=== PATIENT | male | born 1950 | race Two or more races ===

== ENCOUNTER → 2020-05-09 10:23 | Outpatient (BNVA) | payer MEDICARE, MEDICAID, SELFPAY | PROVIDERS: PCP Internal Medicine; Referring Provider Internal Medicine; Visit Provider Internal Medicine | DX: Z13.89 Encounter for screening for other disorder (principal) | CPT/HCPCS: Q3014 ==

== ENCOUNTER 2020-05-15 11:08 | Outpatient (REF) | payer MEDICARE, MEDICAID, SELFPAY ==
[2020-05-15 12:20] LABS: Alanine Aminotransferase 16 U/L (0-40); Albumin Level 4.1 g/dL (3.5-5.0); Alkaline Phosphatase 58 U/L (39-117); Anion Gap 9 (12-20); Aspartate Amino Transferase 16 U/L (5-37); Bilirubin Total 0.7 mg/dL (0.0-1.0); Blood Urea Nitrogen 20 mg/dL (9-16); Calcium 9.8 mg/dL (8.4-10.2); Carbon Dioxide 31 mmol/L (22-29); Chloride 104 mmol/L (96-108); Estimated Glomerular Filt Rate > 60; Glucose Random 87 mg/dL (60-115); Phosphorus 2.9 mg/dL (2.7-4.5); Potassium 4.2 mmol/l (3.3-5.1); Sodium 140 mmol/L (135-145); Total Protein 7.1 g/dL (6.5-8.0)
[2020-05-16 18:33] LABS: Calcium (PTHI) 10.3 mg/dL (8.6-10.3); PTHI 52 pg/mL (14-64)
== END 2020-05-15 11:09 | disposition home or self-care (01) ==
LOC: HO.LAB 11:08
PROVIDERS: PCP Internal Medicine; Visit Provider Internal Medicine
DX: E83.52 Hypercalcemia (principal); E55.9 Vitamin D deficiency, unspecified
CPT/HCPCS: 80053; 82306; 83970; 84100

== ENCOUNTER → 2020-06-28 08:43 | Outpatient (BNVA) | payer MEDICARE, MEDICAID, SELFPAY | PROVIDERS: PCP Internal Medicine; Visit Provider Internal Medicine | DX: Z76.89 Persons encountering health services in other specified circumstances (principal) | CPT/HCPCS: Q3014 ==

== ENCOUNTER → 2020-08-29 09:08 | Outpatient (BNVA) | payer MEDICARE, MEDICAID, SELFPAY | PROVIDERS: PCP Internal Medicine; Visit Provider Internal Medicine | CPT/HCPCS: Q3014 ==

== ENCOUNTER 2020-10-25 09:23 | Outpatient (REF) | payer MEDICARE, MEDICAID, SELFPAY ==
[2020-10-25 10:35] LABS: Albumin Level 4.3 g/dL (3.5-5.0); Estimated Glomerular Filt Rate > 60
[2020-10-25 10:50] LABS: Calcium 10.8 mg/dL (8.4-10.2); Phosphorus 2.4 mg/dL (2.7-4.5)
[2020-10-25 11:00] LABS: Vitamin D 25-OH Total 23.1 ng/mL (>30)
[2020-10-26 09:52] LABS: Calcium, Ionized 5.6 mg/dL (4.8-5.6)
[2020-10-26 15:57] LABS: Calcium (PTHI) 10.9 mg/dL (8.6-10.3); PTHI 50 pg/mL (14-64)
== END 2020-10-25 09:24 | disposition home or self-care (01) ==
LOC: HO.LAB 09:23
PROVIDERS: PCP Internal Medicine; Visit Provider Internal Medicine
DX: E21.3 Hyperparathyroidism, unspecified (principal); E55.9 Vitamin D deficiency, unspecified
CPT/HCPCS: 36415; 82040; 82306; 82310; 82330; 82565; 83970; 84100

== ENCOUNTER 2020-10-30 11:35 | Outpatient (REF) | payer MEDICARE, MEDICAID, SELFPAY ==
[2020-10-30 12:26] LABS: Total Volume 24 Hour Urine 1100 mL
[2020-10-30 12:43] LABS: Creatinine, 24Hr Urine 1.8 G/Day (1.0-2.0); Creatinine, mg/dL 163.53
[2020-10-31 18:22] LABS: Calcium, 24 Hr Urine 188 mg/24 h; Calcium/Creatinine Ratio 105 mg/g creat (30-210); Creatinine 24Hr Urine 1.79 g/24 h (0.50-2.15)
== END 2020-10-30 11:36 | disposition home or self-care (01) ==
LOC: HO.LNP 11:35
PROVIDERS: Visit Provider Internal Medicine
DX: E83.52 Hypercalcemia (principal)
CPT/HCPCS: 82340; 82570

== ENCOUNTER → 2020-10-31 10:00 | Outpatient (BNVA) | payer MEDICARE, MEDICAID, SELFPAY | PROVIDERS: PCP Internal Medicine; Visit Provider Internal Medicine | CPT/HCPCS: Q3014 ==

== ENCOUNTER 2021-01-22 10:56 | Outpatient (REF) | payer MEDICARE, MEDICAID, SELFPAY ==
[2021-01-22 12:02] LABS: MANUAL DIFF FLAG NO
[2021-01-22 12:10] LABS: Basophils Percent Auto 0.4 % (0-2); Eosinophils Absolute Auto 0.1 X10*3/uL (0.0-0.4); Eosinophils Percent Auto 2.8 % (0-4); Hematocrit 39.8 % (42-52); Hemoglobin 13.3 g/dl (14.0-18.0); Lymphocytes Absolute Auto 2.4 X10*3/uL (1.2-4.9); Lymphocytes Percent Auto 51.2 % (20-40); Mean Corpuscular HGB Conc 33.4 g/dl (31.0-36.0); Mean Corpuscular Hemoglobin 31.1 pg (27.0-33.0); Mean Corpuscular Volume 93.2 fL (80-98); Mean Platelet Volume 13.4 fL (9.4-12.4); Monocytes Absolute Auto 0.4 X10*3/uL (0.1-1.2); Monocytes Percent Auto 8.9 % (2-11); Neutrophils Absolute Auto 1.7 X10*3/uL (2.0-8.3); Neutrophils Percent Auto 36.7 % (45-73); Platelet Count 120 X10*3/uL (160-400); Red Blood Count 4.27 X10*6/uL (4.60-5.80); Red Cell Distribution Width 12.3 % (11.0-16.0); White Blood Count 4.6 X10*3/uL (4.8-10.8)
[2021-01-22 12:47] LABS: T4 Thyroxine 8.5 ug/dL (4.5-12.0); Thyroid Stimulating Hormone 1.86 uIU/mL (0.32-4.0); Vitamin D 25-OH Total 29.6 ng/mL (>30)
[2021-01-22 12:53] LABS: Vitamin B12 367 pg/mL (200-900)
[2021-01-22 13:10] LABS: Alanine Aminotransferase 14 U/L (0-40); Albumin Level 4.1 g/dL (3.5-5.0); Alkaline Phosphatase 72 U/L (39-117); Anion Gap 10 (12-20); Aspartate Amino Transferase 19 U/L (5-37); Bilirubin Total 0.5 mg/dL (0.0-1.0); Blood Urea Nitrogen 13 mg/dL (9-16); Calcium 10.5 mg/dL (8.4-10.2); Carbon Dioxide 29 mmol/L (22-29); Chloride 107 mmol/L (96-108); Estimated Glomerular Filt Rate 59; Glucose Random 93 mg/dL (60-115); Rheumatoid Factor < 15.0 IU/mL (<15.0); Sodium 141 mmol/L (135-145); Total Protein 7.1 g/dL (6.5-8.0)
[2021-01-22 13:14] LABS: Erythrocyte Sedimentation Rate 6 MM/HR (0-15)
[2021-01-23 16:57] LABS: Lyme Abs Screen <0.90 index
[2021-01-23 21:01] LABS: Triiodothyronine T3 Total 123 ng/dL (76-181)
[2021-01-26 11:10] LABS: Testosterone, Total 707 ng/dL (250-1100)
== END 2021-01-22 10:57 | disposition home or self-care (01) ==
LOC: HO.LAB 10:56
PROVIDERS: PCP Internal Medicine; Visit Provider Physical Medicine & Rehabilitation
DX: Z01.84 Encounter for antibody response examination (principal); G89.4 Chronic pain syndrome; Z79.891 Long term (current) use of opiate analgesic
CPT/HCPCS: 36415; 80053; 82306; 82607; 84403; 84436; 84443; 84480; 85025; 85652; 86431; 86617; 86618

== ENCOUNTER → 2021-02-27 10:30 | Outpatient (BNVA) | payer MEDICARE, MEDICAID, SELFPAY | PROVIDERS: PCP Internal Medicine; Visit Provider Internal Medicine | DX: Z13.89 Encounter for screening for other disorder (principal) | CPT/HCPCS: Q3014 ==

== ENCOUNTER 2021-06-18 10:24 | Outpatient (REF) | payer MEDICARE, MEDICAID, SELFPAY ==
[2021-06-18 11:35] LABS: Alanine Aminotransferase 14 U/L (0-40); Albumin Level 4.2 g/dL (3.5-5.0); Alkaline Phosphatase 70 U/L (39-117); Anion Gap 10 (12-20); Aspartate Amino Transferase 19 U/L (5-37); Bilirubin Total 0.6 mg/dL (0.0-1.0); Blood Urea Nitrogen 15 mg/dL (9-16); Calcium 10.7 mg/dL (8.4-10.2); Carbon Dioxide 30 mmol/L (22-29); Chloride 105 mmol/L (96-108); Estimated Glomerular Filt Rate 55; Glucose Random 109 mg/dL (60-115); Phosphorus 2.8 mg/dL (2.7-4.5); Potassium 4.3 mmol/L (3.3-5.1); Sodium 141 mmol/L (135-145); Total Protein 7.6 g/dL (6.5-8.0)
[2021-06-18 11:57] LABS: Free T4 (Free Thyroxine) 0.91 ng/dL (0.71-1.85); Thyroid Stimulating Hormone 1.69 uIU/mL (0.32-4.0); Vitamin D 25-OH Total 25.4 ng/mL (>30)
[2021-06-20 16:31] LABS: Calcium (PTHI) 10.5 mg/dL (8.6-10.3); PTHI 60 pg/mL (14-64)
== END 2021-06-18 10:25 | disposition home or self-care (01) ==
LOC: HO.LAB 10:24
PROVIDERS: PCP Internal Medicine; Visit Provider Internal Medicine
DX: E21.3 Hyperparathyroidism, unspecified (principal); E55.9 Vitamin D deficiency, unspecified
CPT/HCPCS: 36415; 80053; 82306; 83970; 84100; 84439; 84443

== ENCOUNTER 2021-06-20 13:02 | Outpatient (REF) | payer MEDICARE, MEDICAID, SELFPAY ==
--- NOTE | ~2021-06-20 | MM_ITS ---
EXAMINATION: BONE DENSITOMETRY CLINICAL INDICATION: Hyperparathyroidism. COMPARISON: Baseline BD dated 05/05/2019. TECHNIQUE: Using a [employer] DXA System (software version: 13.1) manufactured by [employer], dual-energy x-ray absorptiometry was performed of the lumbar spine, left hip, and left forearm radius 33%. The images are of good technical quality. Summary results are attached. FINDINGS: AP SPINE L1-L3 (excluding L4): The data of L1-L4 has been changed to exclude the L4 vertebral body, because degenerative changes at this level may cause overestimation of lumbar spine density. Current: BMD 1.122 g/cm2, Z-score -0.2, T-score -0.7, normal, 2.9% decrease from baseline (<5% change is not significant). Baseline: BMD 1.156 g/cm2. LEFT FEMUR, NECK: Current: BMD 0.814 g/cm2, Z-score -0.7, T-score -2.0, osteopenia. Baseline: BMD 0.818 g/cm2. LEFT FEMUR, TOTAL: Current: BMD 0.972 g/cm2, Z-score -0.1, T-score -0.9, normal, 3.2% increase from baseline (<5% change is not significant). Baseline: BMD 1.004 g/cm2. LEFT FOREARM RADIUS 33%: BMD 0.956 g/cm2, Z-score 0.5, T-score -0.3, normal, 0.1% decrease from baseline (<5% change is not significant). Baseline: BMD 0.957 g/cm2. IDENTIFIED RISK FACTORS: Height loss, hyperparathyroidism, hypogonadism, rheumatoid arthritis, secondary osteoporosis. HISTORY OF FRACTURE: None listed. MEDICATIONS: Vitamin D. MM/XR DEXA appendicular skeleton IMPRESSION: 1. DIAGNOSIS: Osteopenia based on the lowest T-score value of -2.0 in the femoral neck applying World Health Organization criteria. 2. 10-YEAR FRACTURE RISK PREDICTION, FRAX: Major osteoporotic fracture (clinical spine, forearm, hip or shoulder) 5.9%. Hip fracture 1.8%. 3. Treatment Recommendations: NOF guidelines recommend consideration for treatment in postmenopausal women and men age 50 and older presenting with the following: -A hip or vertebral (clinical or morphometric) fracture. -T-score less than or equal to -2.5 at the femoral neck or spine after appropriate evaluation to exclude secondary causes. -Low bone mass at the hip or spine and a 10-year fracture probability by FRAX of greater than or equal to 3% for hip fracture or greater than or equal to 20% for major osteoporotic fracture based on the [place] adapted WHO algorithm. 4. Other Recommendations: All treatment decisions require clinical judgment and consideration of individual patient factors, including patient preferences, comorbidities, previous drug use, risk factors not captured in the FRAX model (e.g. frailty, falls, vitamin D deficiency, increased bone turnover, interval significant decline in bone density) and possible under or overestimation of fracture risk by FRAX. Additional medical evaluation for secondary cause of low bone mineral density may be appropriate. FUTURE SCAN RECOMMENDATION: People with diagnosed cases of osteoporosis or at high risk for fracture should have regular bone mineral density tests. For patients eligible for Medicare, routine testing is allowed once every 2 years. The testing frequency can be increased to one year for patients who have rapidly progressing disease, those who are receiving or discontinuing medical therapy to restore bone mass, or have additional risk factors.
== END 2021-06-20 13:03 | disposition home or self-care (01) ==
LOC: HO.MAMMO 13:02
PROVIDERS: Visit Provider Internal Medicine
DX: Z13.820 Encounter for screening for osteoporosis (principal); E21.3 Hyperparathyroidism, unspecified; R29.890 Loss of height; M06.9 Rheumatoid arthritis, unspecified; E29.1 Testicular hypofunction
CPT/HCPCS: 77081

== ENCOUNTER → 2021-06-26 10:17 | Outpatient (BNVA) | payer MEDICARE, MEDICAID, SELFPAY | PROVIDERS: PCP Internal Medicine; Visit Provider Internal Medicine | DX: I16.1 Hypertensive emergency (principal) | CPT/HCPCS: 99212 ==

== ENCOUNTER 2022-06-23 09:47 | Outpatient (REF) | payer MEDICARE, MEDICAID, SELFPAY ==
[2022-06-23 10:19] LABS: Baso%MD 0.4 %; Eos%MD 4.3 %; Hematocrit 39.6 % (42.0-52.0); Hemoglobin 12.8 g/dl (14.0-18.0); IG%MD 0.2 %; Lymph%MD 49.4 %; Mean Corpuscular HGB Conc 32.3 g/dl (31.0-36.0); Mean Corpuscular Hemoglobin 30.3 pg (27.0-33.0); Mean Corpuscular Volume 93.8 fL (80.0-98.0); Mean Platelet Volume 12.3 fL (9.4-12.4); Neut%MD 36.7 %; Platelet Count 135 X10*3/uL (160-400); Red Blood Count 4.22 X10*6/uL (4.60-5.80); Red Cell Distribution Width 12.7 % (11.0-16.0); White Blood Count 4.7 X10*3/uL (4.8-10.8)
[2022-06-23 11:11] LABS: Erythrocyte Sedimentation Rate 8 MM/HR (0-15)
[2022-06-23 11:20] LABS: Alanine Aminotransferase 13 U/L (0-40); Alkaline Phosphatase 76 U/L (39-117); Anion Gap 10 (12-20); Anion Gap 9 (12-20); Aspartate Amino Transferase 17 U/L (5-37); Aspartate Amino Transferase 18 U/L (5-37); Bilirubin Total 0.4 mg/dL (0.0-1.0); Blood Urea Nitrogen 15 mg/dL (9-16); Calcium 10.2 mg/dL (8.4-10.2); Carbon Dioxide 30 mmol/L (22-29); Carbon Dioxide 31 mmol/L (22-29); Chloride 107 mmol/L (96-108); Cholesterol 200 mg/dL; Estimated Glomerular Filt Rate 59; Estimated Glomerular Filt Rate > 60; Glucose Fasting 101 mg/dL (60-99); Glucose Random 102 mg/dL (60-115); HDL Cholesterol 64 mg/dL; LDL Cholesterol Calculated 123 mg/dl; Potassium 4.5 mmol/L (3.3-5.1); Potassium 4.6 mmol/L (3.3-5.1); Rheumatoid Factor < 13.0 IU/mL (<15.0); Sodium 142 mmol/L (135-145); Total Protein 7.1 g/dL (6.5-8.0); Triglycerides 65 mg/dL
[2022-06-23 11:25] LABS: Vitamin D 25-OH Total 24.7 ng/mL (>30)
[2022-06-23 11:30] LABS: Thyroid Stimulating Hormone 2.31 uIU/mL (0.32-4.0); Vitamin B12 366 pg/mL (200-900); Vitamin D 25-OH Total 25.3 ng/mL (>30)
[2022-06-23 13:10] LABS: Band Neutrophils Percent 1 % (3-5); Basophils Percent Manual 1 % (0-2); Eosinophils Absolute Manual 0.1 X10*3/uL (0.0-0.4); Eosinophils Percent Manual 2 % (0-4); Lymphocytes Absolute Manual 2.7 X10*3/uL (1.2-4.9); Lymphocytes Percent Manual 57 % (20-40); Monocytes Absolute Manual 0.4 X10*3/uL (0.1-1.2); Monocytes Percent Manual 8 % (2-11); Neutrophils Absolute Manual 1.5 X10*3/uL (2.0-8.3); Neutrophils Percent Manual 31 % (45-73)
[2022-06-23 13:12] LABS: Platelet Estimate SLIGHTLY DECREASED (NORMAL); Platelet Morphology Comment L; RBC Morphology NORMAL
[2022-06-24 07:23] LABS: Triiodothyronine T3 Total 134 ng/dL (76-181)
[2022-06-24 08:19] LABS: Lyme Abs Screen <0.90 index
[2022-06-24 12:39] LABS: Calcium, Ionized 5.5 mg/dL (4.8-5.6)
[2022-06-24 15:08] LABS: Calcium (PTHI) 10.5 mg/dL (8.6-10.3); PTHI 74 pg/mL (16-77)
== END 2022-06-23 09:48 | disposition home or self-care (01) ==
LOC: HO.LAB 09:47
PROVIDERS: Physical Medicine & Rehabilitation; PCP Internal Medicine; Visit Provider Internal Medicine
DX: M47.816 Spondylosis without myelopathy or radiculopathy, lumbar region (principal); E78.5 Hyperlipidemia, unspecified; I10 Essential (primary) hypertension; E21.3 Hyperparathyroidism, unspecified; E55.9 Vitamin D deficiency, unspecified; G89.4 Chronic pain syndrome; R10.10 Upper abdominal pain, unspecified
CPT/HCPCS: 36415; 80053; 80061; 82306; 82330; 82607; 83970; 84436; 84443; 84480; 85007; 85027; 85652; 86431; 86617; 86618

== ENCOUNTER 2022-08-15 11:28 | Outpatient (REF) | payer MEDICARE, MEDICAID, SELFPAY ==
--- NOTE | ~2022-08-15 | XR_ITS ---
EXAMINATION: XR CHEST CLINICAL INFORMATION: Chronic pain. COMPARISON: 07/26/2019. TECHNIQUE: 2 views of the chest were obtained. FINDINGS: Normal appearance of the cardiomediastinal silhouette. No focal airspace opacity, pleural effusion or pneumothorax. No acute osseous abnormalities. XR/XR chest 2V IMPRESSION: No acute cardiopulmonary findings.
--- NOTE | ~2022-08-15 | XR_ITS ---
XR CERVICAL SPINE AND THORACIC SPINE CLINICAL HISTORY: Chronic pain. COMPARISON: Radiograph of the cervical spine 08/14/2014. TECHNIQUE: 5 views of the cervical spine including AP, lateral, oblique and odontoid. 3 views of the thoracic spine. FINDINGS: Cervical spine: Mild anterolisthesis of C4 on C5, new compared to 2014. No acute compression deformity. Moderate to severe multilevel spondylosis with intervertebral disc height loss, anterior vertebral body osteophytes and uncovertebral hypertrophy leading to variously degrees of neural foraminal encroachment and central canal stenosis, more noticeable in the mid to lower cervical spine. No peritoneal soft tissue thickening. Imaged lung apices are clear. Thoracic spine: No acute compression deformities or subluxation. Mild multilevel degenerative changes. Paraspinal soft tissues are within normal limits. The included portions of the cardiomediastinal silhouette and lungs are unremarkable. XR/XR cervical spine 3V IMPRESSION: 1. No acute compression deformity or evidence of traumatic subluxation. 2. Mild anterolisthesis of C4 on C5 new compared to 2014, likely degenerative in nature, correlate with point tenderness. 3. Moderate to severe cervical spondylosis which could be further assessed with an MR of the cervical spine if indicated for evaluation of nerve root impingement and degree of central canal stenosis. 4. Mild thoracic spondylosis.
--- NOTE | ~2022-08-15 | XR_ITS ---
XR CERVICAL SPINE AND THORACIC SPINE CLINICAL HISTORY: Chronic pain. COMPARISON: Radiograph of the cervical spine 08/14/2014. TECHNIQUE: 5 views of the cervical spine including AP, lateral, oblique and odontoid. 3 views of the thoracic spine. FINDINGS: Cervical spine: Mild anterolisthesis of C4 on C5, new compared to 2014. No acute compression deformity. Moderate to severe multilevel spondylosis with intervertebral disc height loss, anterior vertebral body osteophytes and uncovertebral hypertrophy leading to variously degrees of neural foraminal encroachment and central canal stenosis, more noticeable in the mid to lower cervical spine. No peritoneal soft tissue thickening. Imaged lung apices are clear. Thoracic spine: No acute compression deformities or subluxation. Mild multilevel degenerative changes. Paraspinal soft tissues are within normal limits. The included portions of the cardiomediastinal silhouette and lungs are unremarkable. XR/XR thoracic spine 3V IMPRESSION: 1. No acute compression deformity or evidence of traumatic subluxation. 2. Mild anterolisthesis of C4 on C5 new compared to 2014, likely degenerative in nature, correlate with point tenderness. 3. Moderate to severe cervical spondylosis which could be further assessed with an MR of the cervical spine if indicated for evaluation of nerve root impingement and degree of central canal stenosis. 4. Mild thoracic spondylosis.
== END 2022-08-15 11:29 | disposition home or self-care (01) ==
LOC: HO.XRAY 11:28
PROVIDERS: PCP Internal Medicine; Visit Provider Physical Medicine & Rehabilitation
DX: R07.89 Other chest pain (principal); M54.6 Pain in thoracic spine; G89.4 Chronic pain syndrome; M54.2 Cervicalgia
CPT/HCPCS: 71046; 72040; 72072

== ENCOUNTER 2023-02-05 16:40 | Outpatient (AMB) | payer MEDICARE, MEDICAID, SELFPAY ==
[2023-02-05 17:04] VITALS: BP 146/66; BMI 26.0
--- NOTE | 2023-02-05 17:04 | A.OFFPC_ITS ---
Vital Signs 02/05/23 17:04 02/05/23 17:23 Height 5 ft 6 in Weight 161 lb BMI 26.0 BP 146/66 H 138/70 Blood Pressure Location Lt brachial Lt brachial Position Sitting Sitting Intake Visit Reasons: bp Intake Note: Patient here for a follow up BP Merchandise Associate Required: No Accompanied by: Self / Same As Patient Allergies hydrochlorothiazide Adverse Reaction (Intermediate, Verified 02/05/23 17:24) Stomach Upset Medication List - Last Reconciled 02/05/23 by Toyin David MD amlodipine 10 mg PO DAILY 90 days blood pressure monitor As directed cetirizine 10 mg PO DAILY PRN 90 days cholecalciferol (vitamin D3) 50 mcg PO DAILY 90 days hydrocortisone 1% appl CT BID PRN lisinopril 40 mg PO DAILY 90 days nabumetone 750 mg PO BID omeprazole 20 mg PO BID 90 days oxycodone ER mg PO tamsulosin 0.4 mg PO DAILY Tobacco use date assessed: 05/20/22 Fall risk assessment: No Falls in past year Last assessed Fall Risk: 02/05/23 Dental Screening Dental Screen Date: 02/05/23 Did you have a dental visit in the last 12 months?: Yes Did you have a dental problem in the last 6 months where you did not have access to dental care?: No Was dental information given to patient?: Patient has dentist HPI HPI Comments History of Present Illness Details This is a 72-year-old male with hypertension, chronic GERD, vitamin-D deficiency and lumbar degenerative disc disease that comes today for follow-up on his conditions. Blood pressure borderline normal to elevated. Compliant with medications. GERD stable with medications. On vitamin-D supplements for low vitamin-D. On extended release oxycodone for his chronic pain and this is follow by pain management. Denies any chest pain or shortness of breath. PFSH Medical History Lumbar degenerative disc disease BPH (benign prostatic hyperplasia) Chronic GERD Hypertensive emergency Hypertension Hyperparathyroidism Vitamin D deficiency Hypercalcemia Surgical History History of appendectomy Family History Father Medical history unknown Mother Hypertension Social History Housing: Apartment Alcohol intake: never Patient Tobacco Use Status: Never used Tobacco e-Cigarette/Vaping Use: Never Used Second Hand Smoke Exposure: Yes service: No Current occupational status: disabled Cognitive needs: No Hearing needs: No Vision needs: No Questionnaire Thrive Questionnaire Date Thrive assessed: 05/20/22 BROOKLYNN-7 AMB Questionnaire BROOKLYNN-7 Date BROOKLYNN - 7 assessed: 05/20/22 Source: Developed by Drs. Abe King, Ashley Dorsey, Stanislav Evans and colleagues, with an educational leigh from [employer]. Review of Systems Const All systems reviewed & are unremarkable except as noted in HPI and below Eyes Reports no additional complaints, Denies change in vision and Denies other visual disturbances Card Denies chest pain at rest, Denies chest pain with activity, Denies edema, Denies irregular heart rhythm, Denies claudication, Denies dyspnea, Denies dyspnea on exertion, Denies orthopnea, Denies paroxysmal nocturnal dyspnea and Denies slow heart rate Resp Denies cough, Denies dyspnea and Denies dyspnea on exertion GI Denies abdominal pain, Denies change in bowel habits, Denies excessive flatus, Denies nausea and Denies vomiting Denies urinary hesitancy, Denies urinary incontinence and Denies urinary urgency Musc Denies abnormal gait, Denies atrophy, Denies deformity and Denies limited range of motion Skin/Breast Denies bleeding lesions, Denies changing lesions and Denies rash Neuro Denies abnormal gait and Denies lack of coordination Physical exam (Primary Care) Vital Signs: Last Vital Signs BP 138/70 02/05/23 17:23 BMI result Body Mass Index 26.0 Tobacco/Smoking Status: Tobacco use Status Tobacco use date assessed 05/20/22 02/05/23 17:07 Patient Tobacco Use Status Never used Tobacco 02/05/23 17:07 e-Cigarette/Vaping Use Never Used 02/05/23 17:07 Thrive Assessment: Date of Thrive Assessment Date Thrive assessed 05/20/22 02/05/23 17:07 Eyes General: appearance normal, both eyes and all related structures Eyelids: Yes eyelids normal Conjunctivae: conjunctivae normal Neck Neck: Yes normal visual inspection and Yes supple Resp Effort & Inspection: normal respiratory effort Auscultation: clear to auscultation bilaterally Cardio Jugular venous distension: no JVD Rate: regular rate Rhythm: regular rhythm Heart sounds: S1 normal heart sound present and S2 normal heart sound present Extrem General: Yes full ROM Assessment and Plan Assessment & Plan (1) Chronic GERD: Code(s): K21.9 - Gastro-esophageal reflux disease without esophagitis Plan: Continue PPIs as needed. (2) Hypertension: Code(s): I10 - Essential (primary) hypertension Plan: Continue lisinopril and amlodipine. Blood pressure goal is equal or less than 130/80. (3) Lumbar degenerative disc disease: Code(s): M51.36 - Other intervertebral disc degeneration, lumbar region Plan: Continue extended-release opiates. Follow-up with pain management. (4) Vitamin D deficiency: Code(s): E55.9 - Vitamin D deficiency, unspecified Plan: Continue vitamin-D supplements. Coding Level of Care Code Est Pt Level 4 (92185) Diagnoses Chronic GERD K21.9 Hypertension I10 Lumbar degenerative disc disease M51.36 Vitamin D deficiency E55.9 Time Spent (min) 24
[2023-02-05 17:23] VITALS: BP 138/70
== END 2023-02-05 17:29 | disposition home or self-care (01) ==
PROVIDERS: PCP Internal Medicine; Visit Provider Internal Medicine
DX: K21.9 Gastro-esophageal reflux disease without esophagitis (principal); I10 Essential (primary) hypertension; M51.36 Other intervertebral disc degeneration, lumbar region; E55.9 Vitamin D deficiency, unspecified
CPT/HCPCS: 99214

== ENCOUNTER 2023-08-17 10:14 | Outpatient (REF) | payer MEDICARE, MEDICAID, SELFPAY ==
[2023-08-17 12:04] LABS: Alanine Aminotransferase 17 U/L (0-40); Alkaline Phosphatase 61 U/L (39-117); Anion Gap 12 (12-20); Aspartate Amino Transferase 19 U/L (5-37); Bilirubin Total 0.6 mg/dL (0.0-1.0); Blood Urea Nitrogen 24 mg/dL (9-16); Calcium 10.6 mg/dL (8.4-10.2); Carbon Dioxide 25 mmol/L (22-29); Chloride 111 mmol/L (96-108); Cholesterol 206 mg/dL (<200); Estimated Glomerular Filt Rate > 60; Glucose Fasting 105 mg/dL (60-99); HDL Cholesterol 70 mg/dL (>40); LDL Cholesterol Calculated 124 mg/dL (<100); Potassium 4.3 mmol/L (3.3-5.1); Sodium 144 mmol/L (135-145); Total Protein 7.4 g/dL (6.5-8.0); Triglycerides 61 mg/dL (<150)
== END 2023-08-17 10:15 | disposition home or self-care (01) ==
LOC: HO.LAB 10:14
PROVIDERS: PCP Internal Medicine; Visit Provider Internal Medicine
DX: E78.5 Hyperlipidemia, unspecified (principal); I10 Essential (primary) hypertension
CPT/HCPCS: 36415; 80053; 80061

== ENCOUNTER 2023-08-18 16:07 | Outpatient (AMB) | payer MEDICARE, MEDICAID, SELFPAY ==
--- NOTE | 2023-08-18 16:11 | A.OFFPC_ITS ---
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 Required: No Accompanied by: Self / Same As Patient Allergies hydrochlorothiazide Adverse Reaction (Intermediate, Verified 08/18/23 16:47) Stomach Upset Medication List - Last Reconciled 08/18/23 by Toyin David MD amlodipine 10 mg PO DAILY 90 days blood pressure monitor As directed cetirizine 10 mg PO DAILY PRN 90 days cholecalciferol (vitamin D3) 50 mcg PO DAILY 90 days hydrocortisone 1% appl [place] BID PRN lisinopril 40 mg PO DAILY 90 days nabumetone 750 mg PO BID omeprazole 20 mg PO BID 90 days oxycodone ER mg PO tamsulosin 0.4 mg PO DAILY Tobacco use date assessed: 08/18/23 Fall risk assessment: No Falls in past year Last assessed Fall Risk: 08/18/23 Dental Screening Dental Screen Date: 08/18/23 Did you have a dental visit in the last 12 months?: No Did you have a dental problem in the last 6 months where you did not have access to dental care?: No Was dental information given to patient?: Patient has dentist HPI HPI Comments History of Present Illness Details This is a 73-year-old male with hypertension, pure hypercholesterolemia, and chronic GERD that complains of action tremor that started few years ago but has been more prominent for the past 3-4 months. Denies any neurological deficit. MRI of the brain will be order and a referral to Neurology will be done. Blood pressure elevated and he did took his medications. Blood pressure will be recheck by nurse navigator. He declines a new medication for elevated blood pressure. Cholesterol elevated and I will start a statin. GERD stable with PPIs. [facility] Medical History (Updated 08/18/23 @ 18:09 by Toyin David MD) Lumbar degenerative disc disease BPH (benign prostatic hyperplasia) Chronic GERD Hypertensive emergency Hypertension Hyperparathyroidism Vitamin D deficiency Hypercalcemia Surgical History History of appendectomy Family History Father Medical history unknown Mother Hypertension Social History Housing: Apartment Alcohol intake: never Patient Tobacco Use Status: Never used Tobacco e-Cigarette/Vaping Use: Never Used Second Hand Smoke Exposure: Yes service: No Current occupational status: disabled Cognitive needs: No Hearing needs: No Vision needs: No Questionnaire PHQ-9 Over the last 2 weeks, how often have you been bothered by any of the following problems? 1. Little interest or pleasure in doing things: not at all 2. Feeling down, depressed, or hopeless: not at all 3. Trouble falling or staying asleep, or sleeping too much: several days 4. Feeling tired or having little energy: several days 5. Poor appetite or overeating: not at all 6. Feeling bad about yourself - or that you are a failure or have let yourself or your family down: not at all 7. Trouble concentrating on things, such as reading the newspaper or watching television: not at all 8. Moving or speaking so slowly that other people could have noticed. Or the opposite - being so fidgety or restless that you have been moving around a lot more than usual: not at all 9. Thoughts that you would be better off or of hurting yourself in some way: not at all Total score: 2 Depression Screening Interpretation: Negative Depression Screening Done: Yes 92994 - PHQ-9 Billing: Yes Source: Developed by Drs. Abe King, Ashley Dorsey, Stanislav Evans and colleagues, with an educational leigh from [employer]. Thrive Questionnaire Date Thrive assessed: 08/18/23 I am a: Patient What is your living situation today?: I have a steady place to live Within the past 12 months, did the food you bought not last and you didn't have the money to get more?: Never true Within the past 12 months, did you worry whether your food would run out before you got money to buy more?: Never true Do you have trouble paying for medicines?: No Do you have trouble getting transportation to medical appointments?: No Do you have trouble paying your heating and electricity bill?: No Do you have trouble taking care of your child, family member or friend?: No Do you have trouble with day-to-day activities such as bathing, preparing meals, shopping, managing finances, etc.?: Yes Are you currently unemployed and looking for a job?: No Are you interested in more education?: No Please select the resources that you would like help with: None Currently or been in a relationship where the following occur: no concerns reported THRIVE Score: 0 AUDIT C Alcohol Use Questionnaire (AUDIT-C) 1. How often do you have a drink containing alcohol?: Never Total Score: 0 BROOKLYNN-7 AMB Questionnaire BROOKLYNN-7 Date BROOKLYNN - 7 assessed: 08/18/23 Feeling nervous, anxious, or on edge: 0 = Not at all Not being able to stop or control worryin = Not at all Worrying too much about different things: 0 = Not at all Trouble relaxin = Not at all Being so restless that it is hard to sit still: 0 = Not at all Becoming easily annoyed or irritable: 0 = Not at all Feeling afraid as if something awful might happen: 0 = Not at all Total BROOKLYNN-7 score (0-4 normal; 5-9 mild; 10-14 moderate; 15-21 severe): 0 Source: Developed by Drs. Abe King, Ashley Dorsey, Stanislav Evans and colleagues, with an educational leigh from [employer]. BROOKLYNN-7 Assessment Billing BROOKLYNN-7 Assessment Tool: BROOKLYNN-7 Assessment 90654 Review of Systems Const All systems reviewed & are unremarkable except as noted in HPI and below Eyes Reports no additional complaints, Denies change in vision and Denies other visual disturbances Card Denies chest pain at rest, Denies chest pain with activity, Denies edema, Denies irregular heart rhythm, Denies claudication, Denies dyspnea, Denies dyspnea on exertion, Denies orthopnea, Denies paroxysmal nocturnal dyspnea and Denies slow heart rate Resp Denies cough, Denies dyspnea and Denies dyspnea on exertion GI Denies abdominal pain, Denies change in bowel habits, Denies excessive flatus, Denies nausea and Denies vomiting Denies urinary hesitancy, Denies urinary incontinence and Denies urinary urgency Neuro Reports tremor(s) Physical exam (Primary Care) Vital Signs: Last Vital Signs BP 168/68 H 08/18/23 16:12 BMI result Body Mass Index 27.4 Tobacco/Smoking Status: Tobacco use Status Tobacco use date assessed 08/18/23 08/18/23 16:20 Patient Tobacco Use Status Never used Tobacco 08/18/23 16:12 e-Cigarette/Vaping Use Never Used 08/18/23 16:12 PHQ-9: PHQ-9 Score PHQ-9: Total score 2 08/18/23 16:51 Depression Screening Interpretation: Negative Thrive Assessment: Date of Thrive Assessment Date Thrive assessed 08/18/23 08/18/23 16:20 Currently or been in a relationship where the following occur: no concerns reported Neck Neck: Yes normal visual inspection and Yes supple Resp Effort & Inspection: normal respiratory effort Auscultation: clear to auscultation bilaterally Cardio Jugular venous distension: no JVD Rate: regular rate Rhythm: regular rhythm Heart sounds: S1 normal heart sound present and S2 normal heart sound present Neuro Motor exam (neuro): Tremors during motor activity present Extrem General: Yes full ROM Assessment and Plan Assessment & Plan (1) Hypertension: Code(s): I10 - Essential (primary) hypertension Plan: Continue lisinopril and amlodipine. Patient declines a new medication. Blood pressure goal is equal or less than 130/80. Recheck blood pressure with nurse navigator. (2) Pure hypercholesterolemia: Code(s): E78.00 - Pure hypercholesterolemia, unspecified Plan: Start statins. (3) Chronic GERD: Code(s): K21.9 - Gastro-esophageal reflux disease without esophagitis Plan: Continue PPIs. (4) Action tremor: Code(s): G25.2 - Other specified forms of tremor Plan: MRI of the brain ordered. Referred to neurology. Orders: Orders MR head/brain wo con Today G25.2 - Other specified forms of tremor Referrals Neurology Referral G25.2 - Other specified forms of tremor Medications: New atorvastatin 20 mg PO BEDTIME 90 days 90 tabs 1RF Refilled cholecalciferol (vitamin D3) 50 mcg PO DAILY 90 days 90 caps 1RF Coding Level of Care Code Est Pt Level 4 (50590) Diagnoses Hypertension I10 Pure hypercholesterolemia E78.00 Chronic GERD K21.9 Action tremor G25.2 Additional Codes BROOKLYNN-7 Assessment Billing - BROOKLYNN-7 Assessment Tool: BROOKLYNN-7 Assessment 14532 ([id number]) Time Spent (min) 22
[2023-08-18 16:12] VITALS: BP 168/68; BMI 27.4
[2023-08-18 18:08] VITALS: BP 160/70
== END 2023-08-18 17:49 | disposition home or self-care (01) ==
PROVIDERS: PCP Internal Medicine; Visit Provider Internal Medicine
DX: I10 Essential (primary) hypertension (principal); E78.00 Pure hypercholesterolemia, unspecified; K21.9 Gastro-esophageal reflux disease without esophagitis; G25.2 Other specified forms of tremor
CPT/HCPCS: 99214

== ENCOUNTER 2023-12-17 16:11 | Outpatient (REF) | payer MEDICARE, MEDICAID, SELFPAY ==
--- NOTE | ~2023-12-17 | MR_ITS ---
MRI OF THE BRAIN WITHOUT IV CONTRAST INDICATION: Tremor. COMPARISON: None available. TECHNIQUE: Multiplanar multisequence MR imaging of the brain was obtained without IV contrast. FINDINGS: There is no hydrocephalus, extra-axial surface collection, or herniation. No parenchymal signal abnormality. The major flow voids at the skull base are preserved. There is no acute infarct on diffusion-weighted imaging. There is no intracranial hemorrhage on the gradient recalled echo acquisition. The midline structures are normal. The cerebellar tonsils are normally positioned. The cerebellum and brainstem are normal. The craniocervical junction is normal. Osseous marrow signal intensity is homogenous. The visualized soft tissues are unremarkable. MR/MR head/brain wo con IMPRESSION: No acute intracranial findings. There is global cerebral volume loss and there is mild chronic microangiopathy. Electronically signed by: Leobardo Dean MD 01/11/2024 09:27 AM EDT
== END 2023-12-17 16:12 | disposition home or self-care (01) ==
LOC: HO.MRI 16:11
PROVIDERS: PCP Internal Medicine; Visit Provider Internal Medicine
DX: G25.2 Other specified forms of tremor (principal)
CPT/HCPCS: 70551

== ENCOUNTER 2024-01-28 07:47 | Outpatient (AMB) | payer MEDICARE, MEDICAID, SELFPAY ==
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
[2024-01-28 07:50] VITALS: BP 136/68; PULSE 76; RESP 16; O2SAT 97; BMI 26.2
== END 2024-01-28 08:51 | disposition home or self-care (01) ==
PROVIDERS: PCP Internal Medicine; Visit Provider Psychiatry & Neurology Neurology
DX: G25.2 Other specified forms of tremor (principal); R20.2 Paresthesia of skin; M50.30 Other cervical disc degeneration, unspecified cervical region
CPT/HCPCS: 99204

== ENCOUNTER → 2024-01-28 07:47 | Outpatient (BNVA) | payer MEDICARE, MEDICAID, SELFPAY | PROVIDERS: PCP Internal Medicine; Visit Provider Psychiatry & Neurology Neurology | DX: G25.2 Other specified forms of tremor (principal); R20.2 Paresthesia of skin; M50.30 Other cervical disc degeneration, unspecified cervical region | CPT/HCPCS: 99202 ==

== ENCOUNTER 2024-04-07 13:29 | Outpatient (AMB) | payer MEDICARE, MEDICAID, SELFPAY ==
--- NOTE | 2024-04-07 13:34 | A.OFFVIS_ITS ---
Intake Vital Signs 04/07/24 13:37 Height 5 ft 6 in Weight 160 lb 14.999 oz BMI 26.0 BP 152/90 H Blood Pressure Location Lt brachial Position Sitting Intake Visit Reasons: AWV Allergies hydrochlorothiazide Adverse Reaction (Intermediate, Verified 04/07/24 14:02) Stomach Upset Medication List - Last Reconciled 04/07/24 by Toyin David MD amlodipine 10 mg PO DAILY 90 days atorvastatin 20 mg PO BEDTIME 90 days blood pressure monitor As directed cetirizine 10 mg PO DAILY PRN 90 days cholecalciferol (vitamin D3) 50 mcg PO DAILY 90 days gabapentin 100 mg PO BID hydrocortisone 1% appl [place] BID PRN lisinopril 40 mg PO DAILY 90 days nabumetone 750 mg PO BID omeprazole 20 mg PO BID 90 days oxycodone ER mg PO tamsulosin 0.4 mg PO DAILY HPI HPI Comments History of Present Illness Details The patient is a 73-year-old male presenting for a Medicare Annual Wellness Exam. The patient has a history of essential hypertension, which was noted to be elevated during the visit today. Amlodipine 10 mg is prescribed for blood pressure management, although the patient indicated they took lisinopril for blood pressure management on this day. The patient also experiences hyperlipidemia and is prescribed atorvastatin 20 mg once daily in the evening for cholesterol management, with instructions for upcoming laboratory work. The patient reports mild depression, scoring 6 on the PHQ-9, but is not currently seeing a psychiatrist or counselor and prefers to avoid counseling or medication for depression. The patient indicates qualification for a pneumonia vaccination due to age. The patient has a history of osteopenia identified in a bone densitometry performed in 2021, associated with elevated parathyroid hormone levels. Calcium with vitamin D was the recommended treatment. The patient has gastroesophageal reflux disease, for which omeprazole is administered twice daily. The patient experiences chronic lower back pain managed with nabumetone 750 mg twice daily and oxycodone as needed and has been seeing a sign painter apprentice. The patient has a history of neuropathy for which vitamin D is provided, with two refills available. Tamsulosin is taken for prostate health. The patient has not undergone a colonoscopy recently and is uncertain about the exact timeline of the previous procedure. There is no known family history of cancer, although hypertension was noted in the patient?s mother. Preventative vaccinations for pneumonia and flu were discussed with consent for the pneumonia vaccine. PPP handed to patient. [place] of care completed. [facility] Medical History Paresthesias in right hand Lumbar degenerative disc disease BPH (benign prostatic hyperplasia) Chronic GERD Hypertensive emergency Hypertension Hyperparathyroidism Vitamin D deficiency Hypercalcemia Surgical History History of appendectomy Family History Father Medical history unknown Mother Hypertension Social History Housing: Apartment Alcohol intake: never Patient Tobacco Use Status: Never used Tobacco e-Cigarette/Vaping Use: Never Used Second Hand Smoke Exposure: Yes service: No Current occupational status: disabled Cognitive needs: No Hearing needs: No Vision needs: No Questionnaire Medicare Wellness Checkup [age] What gender do you identify with?: male During the past 4 weeks, how much have you been bothered by emotional problems such as feeling anxious, depressed, irritable, sad or downhearted, and blue?: quite a bit During the past 4 weeks, has your physical & emotional health limited your social activities with family, friends, neighbors, or groups?: quite a bit During the past 4 weeks, how much bodily pain have you generally had?: severe pain During the past 4 weeks, was someone available to help you if you needed & wanted help?: no, not at all During the past 4 weeks, what was the hardest physical activity you could do for at least 2 minutes?: very light Can you get to places out of walking distance without help? (For eg., can you travel alone on buses, taxis or drive your car?): Yes Can you go shopping for groceries or clothes without someone's help?: Yes Can you prepare your own meals?: Yes Can you do your housework without help?: Yes Because of any health problems, do you need the help of another person with your personal care needs such as eating, bathing, dressing or getting around the house?: No Can you handle your own money without help?: Yes During the past 4 weeks, how would you rate your health in general?: poor During the past 4 weeks how have things been going for you?: very bad; could hardly be worse Are you having difficulties driving your car?: no Do you always fasten your seat belt when you are in a car?: yes, usually During past 4 weeks, have you been bothered by the following: never: Falling or dizzy when standing up, Sexual problems? and Problems using the telephone?, sometimes: Teeth or denture problems? and often: Trouble eating well? and Tiredness or fatigue? Have you fallen 2 or more times in the past year?: No Are you afraid of falling?: Yes Are you a smoker?: no During the past 4 weeks, how many drinks of wine, beer, or other alcoholic beverages did you have?: no alcohol at all Do you exercise for about 20 minutes 3 or more times a week?: yes, some of the time Have you been given information to help with the following?: no: Hazards in your house that might hurt you? and no: Keeping track of your medications? How often do you have trouble taking medicines the way you have been told to take them?: I always take medicine as prescribed How confident are you that you can control & manage most of your health problems?: not very confident What is your race?: or origin or descent Mini Mental State Exam (MMSE) Orientation What is the (year) (season) (date) (day) (month)?: year, season, date, day and month Where are we (state) (county) (town or city) (hospital) (floor)?: state, county, town or city, hospital/clinic and floor Registration Name of 3 unrelated objects clearly and slowly, then ask patient to repeat all 3 of them. (1st repeat determines score. Make sure they can repeat all three): object 1, object 2 and object 3 Attention & Calculation (CHOOSE ONE) Spell WORLD backwards (DLROW): 5 letters Recall Ask patient to repeat the 3 items from question #3.: object 1, object 2 and object 3 Language Show patient a wristwatch & ask what it is. Repeat for pencil.: watch and pencil Ask the patient to repeat the phrase 'No ifs, ands, or buts' after you.: correct Ask the patient to 'take a piece of paper with their right hand' 'fold paper in half' 'place paper on floor': take paper in right hand, fold paper in half and place paper on floor Print the sentence 'CLOSE YOUR EYES' on a piece. If patient actually closes eyes then score.: followed written direction Score Score: 28 Activity of Daily Living Bathing - sponge bath, tub bath or shower: receives no assistance (gets in/out by self, if usual bathing means Dressing - getting clothes from closets & drawers, including inner/outer garments & fasteners.: gets clothes & gets completely dressed without help Toileting - going to the 'toilet room' for urine/bowel elimination & cleaning self/arranging clothes: goes to toilet room, cleans self, arranges clothes without help Transfer: moves in & out of bed and chair without help (may use support object) Continence: controls urination/bowel movements completely by self Feeding: feeds self without help Total Score: 0 Information obtained from: patient Using telephone: independent Traveling: independent Shopping: needs assistance Preparing meals: independent Housework: independent Taking medicine: independent Managing money: independent PHQ-9 Over the last 2 weeks, how often have you been bothered by any of the following problems? 1. Little interest or pleasure in doing things: not at all 2. Feeling down, depressed, or hopeless: several days 3. Trouble falling or staying asleep, or sleeping too much: more than half the days 4. Feeling tired or having little energy: more than half the days 5. Poor appetite or overeating: not at all 6. Feeling bad about yourself - or that you are a failure or have let yourself or your family down: not at all 7. Trouble concentrating on things, such as reading the newspaper or watching television: not at all 8. Moving or speaking so slowly that other people could have noticed. Or the opposite - being so fidgety or restless that you have been moving around a lot more than usual: several days 9. Thoughts that you would be better off or of hurting yourself in some way: not at all Total score: 6 Depression Screening Interpretation: Positive Depression Screening Follow-up: Existing condition, Follow-up Visit Requested and Declines treatment Depression Screening Done: Yes 36716 - PHQ-9 Billing: Yes Source: Developed by Drs. Abe King, Ashley Dorsey, Stanislav Evans and colleagues, with an educational leigh from [email or web address]. Fall Risk Assessment Fall Risk Assessment Fall risk assessment: No Falls in past year Thrive Questionnaire Date Thrive assessed: 04/07/24 I am a: Patient What is your living situation today?: I have a steady place to live Within the past 12 months, did the food you bought not last and you didn't have the money to get more?: Never true Within the past 12 months, did you worry whether your food would run out before you got money to buy more?: Never true Do you have trouble paying for medicines?: No Do you have trouble getting transportation to medical appointments?: No Do you have trouble paying your heating and electricity bill?: No Do you have trouble taking care of your child, family member or friend?: No Do you have trouble with day-to-day activities such as bathing, preparing meals, shopping, managing finances, etc.?: No Are you currently unemployed and looking for a job?: No Are you interested in more education?: No Please select the resources that you would like help with: None Currently or been in a relationship where the following occur: No concerns reported THRIVE Score: 0 AUDIT C Alcohol Use Questionnaire (AUDIT-C) 1. How often do you have a drink containing alcohol?: Never Total Score: 0 BROOKLYNN-7 AMB Questionnaire BROOKLYNN-7 Date BROOKLYNN - 7 assessed: 04/07/24 Feeling nervous, anxious, or on edge: 1 = Several days Not being able to stop or control worryin = Not at all Worrying too much about different things: 0 = Not at all Trouble relaxin = Not at all Being so restless that it is hard to sit still: 0 = Not at all Becoming easily annoyed or irritable: 0 = Not at all Feeling afraid as if something awful might happen: 0 = Not at all Total BROOKLYNN-7 score (0-4 normal; 5-9 mild; 10-14 moderate; 15-21 severe): 1 Source: Developed by Drs. Abe King, Ashley Dorsey, Stanislav Evans and colleagues, with an educational leigh from [employer]. BROOKLYNN-7 Assessment Billing BROOKLYNN-7 Assessment Tool: BROOKLYNN-7 Assessment 31736 Review of Systems Const All systems reviewed & are unremarkable except as noted in HPI and below Card Denies chest pain at rest, Denies chest pain with activity, Denies edema, Denies irregular heart rhythm, Denies claudication, Denies dyspnea, Denies dyspnea on exertion, Denies orthopnea, Denies paroxysmal nocturnal dyspnea and Denies slow heart rate Resp Denies cough, Denies dyspnea and Denies dyspnea on exertion GI Denies abdominal pain, Denies change in bowel habits, Denies excessive flatus, Denies nausea and Denies vomiting Denies urinary hesitancy, Denies urinary incontinence and Denies urinary urgency Musc Reports back pain Physical Exam Vital Signs: Last Vital Signs BP 152/90 H 04/07/24 13:37 BMI result Body Mass Index 26.0 Const Orientation/consciousness: patient oriented x3 Neuro General: patient oriented x3 and gait normal Motor exam (neuro): Tremors during motor activity present Romberg Test: Negative Office Procedures Flu Questionnaire Does the patient have a severe egg allergy?: No Immunizations Fluarix Triv [id number] (PF) 45 mcg (15 mcg x 3)/0.5 mL IM syringe Performing Provider: Toyin David MD Performing Location: [facility] Documented (not given) by: BRAULIO Brito on 04/07/24 13:49 Reason Not Given: Patient Refused pneumoc 20-dimas conj-dip cr(PF) 0.5 mL IM syringe Performing Provider: Toyin David MD Performing Location: [facility] Administered by: BRAULIO Brito on 04/07/24 14:23 Dose Route Admin Location Dispensed Lot Number Expiration Date [facility] Knockout Worker 0.5 mL IM Left Deltoid 0.5 mL [id number] 05/18/25 [employer]N VIS Given Date VIS Provided VIS Publication Date 04/07/24 Single Vaccine 21 Eligibility Eligibility Date Funding Source Not [facility] Eligible 04/07/24 Private Assessment & Plan Assessment & Plan (1) Encounter for Medicare annual wellness exam: Code(s): Z00.00 - Encounter for general adult medical examination without abnormal findings (2) Hyperparathyroidism: Code(s): E21.3 - Hyperparathyroidism, unspecified Plan - For essential hypertension, continue amlodipine and ensure patient compliance; revisit in three weeks for reassessment. - For osteopenia, planning to repeat bone densitometry and follow up on parathyroid hormone levels. - Commence laboratory work for hyperlipidemia management before considering atorvastatin adjustments. - Administer the pneumococcal vaccine today. - Schedule a colonoscopy for up-to-date colorectal cancer screening. - Monitor and manage mild depression with periodic mental health assessments. - Continue current management for gastroesophageal reflux disease and lower back pain, confirm need for future pain management referrals. Patient was informed and verbally consented to the use of an ambient scribe for clinic note documentation during this visit. Orders: Orders Influenza [id number] Immunization Today Z23 - Encounter for immunization Lipid Panel Today E78.5 - Hyperlipidemia, unspecified Phosphorus Today E21.3 - Hyperparathyroidism, unspecified Calcium, Ionized Today E21.3 - Hyperparathyroidism, unspecified XR DEXA axial skeleton Today E21.3 - Hyperparathyroidism, unspecified Pneumococcal 20 Immunization Today Z23 - Encounter for immunization Vitamin D 25-OH Total Today E55.9 - Vitamin D deficiency, unspecified Comprehensive [place]. Panel Fast Today E21.3 - Hyperparathyroidism, unspecified Parathyroid Hormone Intact Today E21.3 - Hyperparathyroidism, unspecified Referrals Open Access Screening Colonoscopy Referral Z12.12 - Encounter for screening for malignant neoplasm of rectum Patient Instructions: - Ensure daily compliance with blood pressure medication. - Attend follow-up appointments for laboratory evaluations and blood pressure re-assessment in three weeks. - Prepare for the scheduled colonoscopy and attend appointments for eye and dental examinations as planned. - Maintain current therapy for gastroesophageal reflux and back pain. - Immediately seek care if symptoms of severe headache, chest pain, or sudden changes in health arise. - Monitor mental health and consider discussing any worsening symptoms at the next visit. Quality Reporting (2020) Fall Risk Screening ([facility] 139) Fall risk assessment: No Falls in past year Depression/Bipolar (159/160/161/177) PHQ-9: Total score: 6 Coding Level of Care Code Medicare First (G0438) Diagnoses Encounter for Medicare annual wellness exam Z00.00 Hyperparathyroidism E21.3 Additional Codes BROOKLYNN-7 Assessment Billing - BROOKLYNN-7 Assessment Tool: BROOKLYNN-7 Assessment 08716 ([id number]) PHQ-9 - 42494 - PHQ-9 Billing: Yes ([id number]) Time Spent (min) 35
[2024-04-07 13:37] VITALS: BP 152/90; BMI 26.0
== END 2024-04-07 14:25 | disposition home or self-care (01) ==
PROVIDERS: PCP Internal Medicine; Visit Provider Internal Medicine
DX: Z00.00 Encounter for general adult medical examination without abnormal findings (principal); E21.3 Hyperparathyroidism, unspecified; Z23 Encounter for immunization

== ENCOUNTER → 2024-04-07 13:29 | Outpatient (BNVA) | payer MEDICARE, MEDICAID, SELFPAY | PROVIDERS: PCP Internal Medicine; Visit Provider Internal Medicine | DX: Z00.00 Encounter for general adult medical examination without abnormal findings (principal); Z23 Encounter for immunization; E21.3 Hyperparathyroidism, unspecified | CPT/HCPCS: 90471; 90677; 96127 ==

== ENCOUNTER 2024-05-24 13:58 | Outpatient (AMB) | payer MEDICARE, MEDICAID, SELFPAY ==
--- NOTE | 2024-05-24 14:19 | A.OFFPC_ITS ---
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: No Accompanied by: Self / Same As Patient Allergies hydrochlorothiazide Adverse Reaction (Intermediate, Verified 05/24/24 14:27) Stomach Upset Medication List - Last Reconciled 05/24/24 by Toyin David MD amlodipine 10 mg PO DAILY 90 days atorvastatin 20 mg PO BEDTIME 90 days blood pressure monitor As directed blood pressure test kit-large ([facility] Blood Pressure Monitor kit) As directed cetirizine 10 mg PO DAILY PRN 90 days cholecalciferol (vitamin D3) 50 mcg PO DAILY 90 days gabapentin 100 mg PO BID hydralazine 10 mg PO TID 30 days hydrocortisone 1% appl PA BID PRN lisinopril 40 mg PO DAILY 90 days nabumetone 750 mg PO BID omeprazole 20 mg PO BID 90 days oxycodone ER mg PO tamsulosin 0.4 mg PO DAILY Tobacco use date assessed: 05/24/24 Fall risk assessment: No Falls in past year Last assessed Fall Risk: 05/24/24 Dental Screening Dental Screen Date: 05/24/24 Did you have a dental visit in the last 12 months?: No Did you have a dental problem in the last 6 months where you did not have access to dental care?: No Was dental information given to patient?: Patient has dentist HPI HPI Comments History of Present Illness Details The patient is a 73-year-old male presenting with symptoms of peripheral neuropathy and associated leg pain. The patient reports experiencing pain in the legs described as burning and hot sensations, alongside feelings of tingling and numbness in both legs. He has previously consulted online videos and relates these sensations to neuropathy. The patient reports experiencing these symptoms persistently and seeks further evaluation. Additionally, there is a history of taking gabapentin for neuropathy, though the efficacy is not stated. Previously diagnosed with hypertension, the patient notes some home monitoring indicating blood pressure around 133/70, though specific units or consistency was not confirmed. He occasionally forgets to take his antihypertensive medications. Moreover, the patient describes symptoms related to sciatica, reporting potential pinched nerves contributing to the sensation of pain, tingling, and numbness in both legs. He has a history of taking hydralazine, lisinopril, nabumetone, omeprazole for GERD, oxycodone for pain, and tamsulosin for BPH. [facility] Medical History (Updated 05/24/24 @ 19:06 by Toyin Davdi MD) Paresthesias in right hand Lumbar degenerative disc disease BPH (benign prostatic hyperplasia) Chronic GERD Hypertensive emergency Hypertension Hyperparathyroidism Vitamin D deficiency Hypercalcemia Surgical History History of appendectomy Family History Father Medical history unknown Mother Hypertension Social History Housing: Apartment Alcohol intake: never Patient Tobacco Use Status: Never used Tobacco e-Cigarette/Vaping Use: Never Used Second Hand Smoke Exposure: Yes service: No Current occupational status: disabled Cognitive needs: No Hearing needs: No Vision needs: No Questionnaire PHQ-9 Over the last 2 weeks, how often have you been bothered by any of the following problems? 1. Little interest or pleasure in doing things: not at all 2. Feeling down, depressed, or hopeless: several days 3. Trouble falling or staying asleep, or sleeping too much: several days 4. Feeling tired or having little energy: not at all 5. Poor appetite or overeating: several days 6. Feeling bad about yourself - or that you are a failure or have let yourself or your family down: not at all 7. Trouble concentrating on things, such as reading the newspaper or watching television: not at all 8. Moving or speaking so slowly that other people could have noticed. Or the opposite - being so fidgety or restless that you have been moving around a lot more than usual: not at all 9. Thoughts that you would be better off or of hurting yourself in some way: not at all Total score: 3 Depression Screening Interpretation: Positive Depression Screening Follow-up: Existing condition, In treatment and Follow-up Visit Requested Depression Screening Done: Yes 91894 - PHQ-9 Billing: Yes Source: Developed by Drs. Abe King, Stanislav Ibarra and colleagues, with an educational leigh from [employer]. Thrive Questionnaire Date Thrive assessed: 04/07/24 BROOKLYNN-7 AMB Questionnaire BROOKLYNN-7 Date BROOKLYNN - 7 assessed: 05/24/24 Feeling nervous, anxious, or on edge: 1 = Several days Not being able to stop or control worryin = Not at all Worrying too much about different things: 1 = Several days Trouble relaxin = Several days Being so restless that it is hard to sit still: 0 = Not at all Becoming easily annoyed or irritable: 0 = Not at all Feeling afraid as if something awful might happen: 1 = Several days Total BROOKLYNN-7 score (0-4 normal; 5-9 mild; 10-14 moderate; 15-21 severe): 4 Source: Developed by Drs. Abe King, Stanislav Ibarra and colleagues, with an educational leigh from [employer]. BROOKLYNN-7 Assessment Billing BROOKLYNN-7 Assessment Tool: BROOKLYNN-7 Assessment 13865 Review of Systems Const All systems reviewed & are unremarkable except as noted in HPI and below Card Denies chest pain at rest, Denies chest pain with activity, Denies edema, Denies irregular heart rhythm, Denies claudication, Denies dyspnea, Denies dyspnea on exertion, Denies orthopnea, Denies paroxysmal nocturnal dyspnea and Denies slow heart rate Resp Denies cough, Denies dyspnea and Denies dyspnea on exertion GI Denies abdominal pain, Denies change in bowel habits, Denies excessive flatus, Denies nausea and Denies vomiting Denies urinary hesitancy, Denies urinary incontinence and Denies urinary urgency Musc Reports back pain, Denies atrophy, Denies deformity and Denies limited range of motion Physical exam (Primary Care) Vital Signs: Last Vital Signs BP 133/70 05/24/24 14:32 BMI result Body Mass Index 26.5 Tobacco/Smoking Status: Tobacco use Status Tobacco use date assessed 05/24/24 05/24/24 14:22 Patient Tobacco Use Status Never used Tobacco 05/24/24 14:22 e-Cigarette/Vaping Use Never Used 05/24/24 14:22 PHQ-9: PHQ-9 Score PHQ-9: Total score 3 05/24/24 14:44 Depression Screening Interpretation: Positive Depression Screening Follow-up: Existing condition, In treatment and Follow-up Visit Requested Thrive Assessment: Date of Thrive Assessment Date Thrive assessed 04/07/24 05/24/24 14:22 Resp Effort & Inspection: normal respiratory effort Auscultation: clear to auscultation bilaterally Cardio Jugular venous distension: no JVD Rate: regular rate Rhythm: regular rhythm Heart sounds: S1 normal heart sound present and S2 normal heart sound present Extrem General: Yes full ROM Office Procedures Flu Questionnaire Does the patient have a severe egg allergy?: No Immunizations Fluarix Triv [id number] (PF) 45 mcg (15 mcg x 3)/0.5 mL IM syringe Performing Provider: Toyin David MD [facility] Documented (not given) by: BRAULIO Brito on 05/24/24 14:44 Reason Not Given: Patient Refused Coding Level of Care Code Est Pt Level 4 (42190) Complex EM visit Add On G2211 Diagnoses Pure hypercholesterolemia E78.00 Chronic GERD K21.9 Hypertension I10 Peripheral neuropathy G62.9 Bilateral sciatica M54.31; M54.32 Additional Codes BROOKLYNN-7 Assessment Billing - BROOKLYNN-7 Assessment Tool: BROOKLYNN-7 Assessment 10962 ([id number]) PHQ-9 - 02168 - PHQ-9 Billing: Yes ([id number]) Time Spent (min) 22 Assessment & Plan Assessment & Plan (1) Pure hypercholesterolemia: Code(s): E78.00 - Pure hypercholesterolemia, unspecified Category: Medical (2) Chronic GERD: Code(s): K21.9 - Gastro-esophageal reflux disease without esophagitis Category: Medical (3) Hypertension: Code(s): I10 - Essential (primary) hypertension Category: Medical (4) Peripheral neuropathy: Code(s): G62.9 - Polyneuropathy, unspecified Category: Medical (5) Bilateral sciatica: Code(s): M54.31 - Sciatica, right side; M54.32 - Sciatica, left side Category: Medical Plan - Conduct a nerve conduction study of the legs to investigate symptoms of neuropathy. - Perform laboratory tests to assess vitamin levels, specifically Vitamin B12, for potential deficiencies contributing to neuropathy. Patient was informed and verbally consented to the use of an ambient scribe for clinic note documentation during this visit. Orders: Orders Vitamin D 25-OH Total Today E55.9 - Vitamin D deficiency, unspecified Complete Blood Count Auto Diff Today D64.9 - Anemia, unspecified Lipid Panel Today E78.5 - Hyperlipidemia, unspecified Comprehensive [place]. Panel Fast Today E78.00 - Pure hypercholesterolemia, unspecified Influenza [id number] Immunization Today Z23 - Encounter for immunization Vitamin B12 and Folate Today E53.8 - Deficiency of other specified B group vitamins IRON PROFILE Today D64.9 - Anemia, unspecified Patient Instructions: - Undergo nerve conduction study as planned to evaluate leg pain and neuropathy. - Complete laboratory testing as instructed to check vitamin levels, including Vitamin B12. - Ensure adherence to current medications for hypertension and GERD to maintain good control. - Return for follow-up after tests to discuss results and any treatment adjustments.
[2024-05-24 14:21] VITALS: BP 148/70; BMI 26.5
[2024-05-24 14:32] VITALS: BP 133/70
== END 2024-05-24 14:36 | disposition home or self-care (01) ==
PROVIDERS: PCP Internal Medicine; Visit Provider Internal Medicine
DX: E78.00 Pure hypercholesterolemia, unspecified (principal); K21.9 Gastro-esophageal reflux disease without esophagitis; I10 Essential (primary) hypertension; G62.9 Polyneuropathy, unspecified; M54.31 Sciatica, right side; M54.32 Sciatica, left side; Z23 Encounter for immunization

== ENCOUNTER → 2024-05-24 13:58 | Outpatient (BNVA) | payer MEDICARE, MEDICAID, SELFPAY | PROVIDERS: PCP Internal Medicine; Visit Provider Internal Medicine | DX: G62.9 Polyneuropathy, unspecified (principal); E78.00 Pure hypercholesterolemia, unspecified; K21.9 Gastro-esophageal reflux disease without esophagitis; I10 Essential (primary) hypertension; M54.31 Sciatica, right side; M54.32 Sciatica, left side; Z28.21 Immunization not carried out because of patient refusal | CPT/HCPCS: 90471; 96127; 99212 ==

== ENCOUNTER 2024-06-03 08:26 | Outpatient (REF) | payer MEDICARE, MEDICAID, SELFPAY ==
[2024-06-03 08:53] LABS: MANUAL DIFF FLAG NO
[2024-06-03 09:04] LABS: Basophils Percent Auto 0.6 % (0-2); Eosinophils Absolute Auto 0.2 X10*3/uL (0.0-0.4); Eosinophils Percent Auto 3.8 % (0-4); Hematocrit 37.4 % (42.0-52.0); Hemoglobin 12.4 g/dl (14.0-18.0); Imm Gran Abs Auto 0.01 X10*3/uL (0.00-0.03); Imm Gran Pct Auto 0.2 % (0.0-0.4); Lymphocytes Absolute Auto 2.3 X10*3/uL (1.2-4.9); Lymphocytes Percent Auto 48.9 % (20-40); Mean Corpuscular HGB Conc 33.2 g/dl (31.0-36.0); Mean Corpuscular Hemoglobin 30.5 pg (27.0-33.0); Mean Corpuscular Volume 91.9 fL (80.0-98.0); Mean Platelet Volume 12.6 fL (9.4-12.4); Monocytes Absolute Auto 0.5 X10*3/uL (0.1-1.2); Monocytes Percent Auto 10.3 % (2-11); Neutrophils Absolute Auto 1.7 x10*3/uL (2.0-8.3); Neutrophils Percent Auto 36.2 % (45-73); Platelet Count 109 X10*3/uL (160-400); Red Blood Count 4.07 X10*6/uL (4.60-5.80); Red Cell Distribution Width 12.1 % (11.0-16.0); White Blood Count 4.8 X10*3/uL (4.8-10.8)
[2024-06-03 09:38] LABS: Alanine Aminotransferase 13 U/L (0-40); Albumin Level 4.3 g/dL (3.5-5.0); Alkaline Phosphatase 63 U/L (39-117); Anion Gap 7 (12-20); Aspartate Amino Transferase 22 U/L (5-37); Bilirubin Total 0.5 mg/dL (0.0-1.0); Blood Urea Nitrogen 15 mg/dL (9-16); Calcium 10.2 mg/dL (8.4-10.2); Carbon Dioxide 29 mmol/L (22-29); Chloride 109 mmol/L (96-108); Cholesterol 184 mg/dL (<200); Estimated Glomerular Filt Rate 51; Glucose Fasting 90 mg/dL (60-99); HDL Cholesterol 66 mg/dL (>40); Iron 127 mcg/dL (45-160); LDL Cholesterol Calculated 105 mg/dL (<100); Percent Iron Saturation 47 % (15-50); Potassium 4.7 mmol/L (3.3-5.1); Sodium 140 mmol/L (135-145); Total Iron Binding Capacity 270 mcg/dL (228-428); Total Protein 7.9 g/dL (6.5-8.0); Triglycerides 69 mg/dL (<150); Unsaturated Iron Binding 143 ug/dL
[2024-06-03 10:05] LABS: Folate 11.7 ng/mL (> or = 4.0); Vitamin B12 353 pg/mL (200-900)
[2024-06-03 10:31] LABS: Parathyroid Hormone Intact 77.8 pg/mL (8.7-77.1)
[2024-06-07 12:04] LABS: Calcium, Ionized 5.7 mg/dL (4.7-5.5)
== END 2024-06-03 08:27 | disposition home or self-care (01) ==
LOC: HO.LAB 08:26
PROVIDERS: PCP Internal Medicine; Visit Provider Internal Medicine
DX: D64.9 Anemia, unspecified (principal); E78.5 Hyperlipidemia, unspecified; E21.3 Hyperparathyroidism, unspecified; E55.9 Vitamin D deficiency, unspecified; E78.00 Pure hypercholesterolemia, unspecified; E53.8 Deficiency of other specified B group vitamins
CPT/HCPCS: 36415; 80053; 80061; 82306; 82330; 82607; 82746; 83540; 83970; 84100; 85025

== ENCOUNTER 2024-08-29 14:54 | Outpatient (AMB) | payer MEDICARE, MEDICAID, SELFPAY ==
[2024-08-29 14:56] VITALS: BP 142/70; BMI 26.3
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
--- OUTSIDE RECORDS SUMMARY | 2024-08-29 17:27 | XMS_ITS | Clinical Summary ---
Author Organization [facility] [place] [address] Care Team Providers Care Rn Practitioner Name Role Phone Unavailable Primary Care Provider Unavailabl e Social History Tobacco Use Types Packs/Day Years Used Date Smoking Tobacco: Never Assessed Sex and Gender Information Value Date Recorded Sex Assigned at Not on file Legal Sex Male 5:41 AM EST Gender Identity Not on file Sexual Orientation Not on file Plan of Treatment Health Maintenance Due Date Last Done Comments DTaP,Tdap,and Td Vaccines (1 - Tdap) 1969 Pneumococcal Vaccine: 50+ Ye ars (1 of 1 - PCV) 08/16/1999 Zoster Vaccines (1 of 2) 08/16/1999 Abdominal Aortic Aneurysm (A AA) Screen 04/20/2022 Cholesterol Screening (Lipid Panel) 04/20/2022 Colorectal Cancer Screening: Colonoscopy 04/20/2022 Depression Screening 04/20/2022 Falls Risk Assessment 04/20/2022 Hepatitis C Screening 04/20/2022 Social Influencers of Health Screening 04/20/2022 COVID-19 Vaccine ( - 2023-2 5 season) 2024 RSV Immunization Adult Patie nts (1 - 1-dose 75+ series) 2024 Influenza Vaccine (Season Ended) 2025 HIB Vaccines Aged Out No longer eligi ble based on patient's age to complete this topic HPV Vaccines Aged Out No longer eligi ble based on patient's age to complete this topic Hepatitis A Vaccines Aged Out No long er eligible based on patient's age to complete this topic Hepatitis B Vaccines Aged Out No long er eligible based on patient's age to complete this topic IPV Vaccines Aged Out No longer eligi ble based on patient's age to complete this topic MMR Vaccines Aged Out No longer eligi ble based on patient's age to complete this topic Meningococcal ACWY Vaccine Aged Out N o longer eligible based on patient's age to complete this topic Meningococcal B Vaccine Aged Out No l onger eligible based on patient's age to complete this topic RSV Immunization Patients Un samuel 20 months Aged Out No longer eligible b ased on patient's age to complete this topic Varicella Vaccines Aged Out No longer eligible based on patient's age to complete this topic
== END 2024-08-29 15:23 | disposition home or self-care (01) ==
PROVIDERS: PCP Internal Medicine; Visit Provider Psychiatry & Neurology Neurology
DX: G25.2 Other specified forms of tremor (principal); R20.2 Paresthesia of skin; M50.30 Other cervical disc degeneration, unspecified cervical region
CPT/HCPCS: 99214; G2211

== ENCOUNTER → 2024-08-29 14:54 | Outpatient (BNVA) | payer MEDICARE, MEDICAID, SELFPAY | PROVIDERS: PCP Internal Medicine; Visit Provider Psychiatry & Neurology Neurology | DX: G25.2 Other specified forms of tremor (principal); R20.2 Paresthesia of skin; M50.30 Other cervical disc degeneration, unspecified cervical region | CPT/HCPCS: 99212 ==

== ENCOUNTER 2024-10-05 13:58 | Outpatient (AMB) | payer MEDICARE, MEDICAID, SELFPAY ==
--- NOTE | 2024-10-05 14:06 | A.OFFPC_ITS ---
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 Required: No Accompanied by: niece Allergies hydrochlorothiazide Adverse Reaction (Intermediate, Verified 10/05/24 14:34) Stomach Upset Medication List - Last Reconciled 10/05/24 by Toyin David MD amlodipine 10 mg PO DAILY 90 days atorvastatin 20 mg PO DAILY blood pressure monitor As directed blood pressure test kit-large ([facility] Blood Pressure Monitor kit) As directed cetirizine 10 mg PO DAILY PRN 90 days gabapentin 300 mg PO BID hydrocortisone 1% appl PA BID PRN lisinopril 40 mg PO DAILY 90 days nabumetone 750 mg PO BID omeprazole 20 mg PO BID 90 days oxycodone ER (OxyContin) 60 mg PO Q12H tamsulosin 0.4 mg PO DAILY Tobacco use date assessed: 05/24/24 Dental Screening Dental Screen Date: 05/24/24 HPI HPI Comments History of Present Illness Details The patient is a 74-year-old male presenting with several ongoing me dical concerns. His essential hypertension is managed with hydrochlorothiazide and amlodipine, noting only occasional gastrointestinal discomfort attributed to hydrochlorothiazide. Additionally, he has an enlarged prostate treated with tamsulosin, with no recent exacerbations. The patient manages hyperlipidemia with atorvastatin and reports no adverse effects. Prior labs revealed mild anemia and low calcium and phosphorus levels, with plans for reevaluation to monitor these conditions. [facility] Medical History (Updated 10/05/24 @ 14:50 by Toyin David MD) Paresthesias in right hand Lumbar degenerative disc disease BPH (benign prostatic hyperplasia) Chronic GERD Hypertensive emergency Hypertension Hyperparathyroidism Vitamin D deficiency Hypercalcemia Surgical History History of appendectomy Family History Father Medical history unknown Mother Hypertension Social History Housing: Apartment Alcohol intake: never Patient Tobacco Use Status: Never used Tobacco e-Cigarette/Vaping Use: Never Used Second Hand Smoke Exposure: Yes service: No Current occupational status: disabled Cognitive needs: No Hearing needs: No Vision needs: No Questionnaire Thrive Questionnaire Date Thrive assessed: 10/05/24 I am a: Patient What is your living situation today?: I have a steady place to live Within the past 12 months, did the food you bought not last and you didn't have the money to get more?: Never true Within the past 12 months, did you worry whether your food would run out before you got money to buy more?: Never true Do you have trouble paying for medicines?: No Do you have trouble getting transportation to medical appointments?: No Do you have trouble paying your heating and electricity bill?: No Do you have trouble taking care of your child, family member or friend?: No Do you have trouble with day-to-day activities such as bathing, preparing meals, shopping, managing finances, etc.?: No Are you currently unemployed and looking for a job?: No Are you interested in more education?: No Please select the resources that you would like help with: None Currently or been in a relationship where the following occur: No concerns reported THRIVE Score: 0 AUDIT C Alcohol Use Questionnaire (AUDIT-C) 1. How often do you have a drink containing alcohol?: Never Total Score: 0 Score Reviewed/Action Taken: No BROOKLYNN-7 AMB Questionnaire BROOKLYNN-7 Date BROOKLYNN - 7 assessed: 05/24/24 Source: Developed by Drs. Abe King, Ashley Dorsey, Stanislav Evans and colleagues, with an educational leigh from [employer]. Review of Systems Const All systems reviewed & are unremarkable except as noted in HPI and below Card Denies chest pain at rest, Denies chest pain with activity, Denies edema, Denies irregular heart rhythm, Denies claudication, Denies dyspnea, Denies dyspnea on exertion, Denies orthopnea, Denies paroxysmal nocturnal dyspnea and Denies slow heart rate Resp Denies cough, Denies dyspnea and Denies dyspnea on exertion GI Denies abdominal pain, Denies change in bowel habits, Denies excessive flatus, Denies nausea and Denies vomiting Physical exam (Primary Care) Vital Signs: Last Vital Signs BP 128/60 10/05/24 14:07 BMI result Body Mass Index 27.3 Tobacco/Smoking Status: Tobacco use Status Tobacco use date assessed 05/24/24 10/05/24 14:19 Patient Tobacco Use Status Never used Tobacco 10/05/24 14:19 e-Cigarette/Vaping Use Never Used 10/05/24 14:19 Thrive Assessment: Date of Thrive Assessment Date Thrive assessed 10/05/24 10/05/24 14:19 Currently or been in a relationship where the following occur: No concerns reported Resp Effort & Inspection: normal respiratory effort Auscultation: clear to auscultation bilaterally Cardio Jugular venous distension: no JVD Rate: regular rate Rhythm: regular rhythm Heart sounds: S1 normal heart sound present and S2 normal heart sound present Extrem General: Yes full ROM Coding Level of Care Code Est Pt Level 4 (24921) Complex EM visit Add On G2211 Diagnoses Hypocalcemia E83.51 Hypophosphatemia E83.39 Pure hypercholesterolemia E78.00 BPH (benign prostatic hyperplasia) N40.0 Hypertension I10 Time Spent (min) 23 Assessment & Plan Assessment & Plan (1) Hypocalcemia: Code(s): E83.51 - Hypocalcemia Category: Medical (2) Hypophosphatemia: Code(s): E83.39 - Other disorders of phosphorus metabolism Category: Medical (3) Pure hypercholesterolemia: Code(s): E78.00 - Pure hypercholesterolemia, unspecified Category: Medical (4) BPH (benign prostatic hyperplasia): Code(s): N40.0 - Benign prostatic hyperplasia without lower urinary tract symptoms Category: Medical (5) Hypertension: Code(s): I10 - Essential (primary) hypertension Category: Medical Plan The current regimen of hydrochlorothiazide and amlodipine for hypertension control will persist, monitoring for gastrointestinal discomfort. Future labs in March will evaluate hemoglobin, calcium, and phosphorus levels due to past discrepancies. Tamsulosin for prostate issues remains unchanged, and atorvastatin for cholesterol will continue. We will adjust treatment plans based on future results and symptom management needs. Patient was informed and verbally consented to the use of an ambient scribe for clinic note documentation during this visit. I discussed with the patient the treatment plans for hypertension, including the maintenance of current medications, addressing the minor gastrointestinal issues. We reviewed the upcoming hemoglobin and electrolyte assessments, noting the importance of lab follow-ups to ensure normal levels. I emphasized adherence to prostate and lipid management regimens, explaining the benefits and reaffirming the need for continued monitoring. We agreed on re-evaluating his treatment plan based on future lab results and told him to report any new symptoms. Orders: Orders Lipid Panel 6 Months E78.5 - Hyperlipidemia, unspecified Vitamin B12 and Folate 6 Months E53.8 - Deficiency of other specified B group vitamins Phosphorus 6 Months E83.39 - Other disorders of phosphorus metabolism ECG 12 lead EKG Today R07.9 - Chest pain, unspecified Complete Blood Count Auto Diff 6 Months D64.9 - Anemia, unspecified IRON PROFILE 6 Months D64.9 - Anemia, unspecified Vitamin D 25-OH Total 6 Months E55.9 - Vitamin D deficiency, unspecified Calcium, Ionized 6 Months E83.51 - Hypocalcemia Patient Instructions: - Continue taking all prescribed medications as directed. - Report any persistent or worsening stomach pain. - Return for laboratory tests in March as planned. - Continue to use tamsulosin and atorvastatin as prescribed. - Follow-up if any new symptoms or concerns arise. - Keep hydrated and maintain a balanced diet to support overall health.
[2024-10-05 14:07] VITALS: BP 128/60; BMI 27.3
--- OUTSIDE RECORDS SUMMARY | 2024-10-05 14:27 | XMS_ITS | Clinical Summary ---
Author Organization [facility] ity Address [address] [place] [address] Care Team Providers Care Traffic Operator Name Role Phone Unavailable Primary Care Provider [...] 08/16/1999 Zoster Vaccines (1 of 2) 08/16/1999 COVID-19 Vaccine ( - 2023-2 5 season) [...]
== END 2024-10-05 14:49 | disposition home or self-care (01) ==
PROVIDERS: PCP Internal Medicine; Visit Provider Internal Medicine
DX: E83.51 Hypocalcemia (principal); E83.39 Other disorders of phosphorus metabolism; E78.00 Pure hypercholesterolemia, unspecified; N40.0 Benign prostatic hyperplasia without lower urinary tract symptoms; I10 Essential (primary) hypertension

== ENCOUNTER → 2024-10-05 13:58 | Outpatient (BNVA) | payer MEDICARE, MEDICAID, SELFPAY | PROVIDERS: PCP Internal Medicine; Visit Provider Internal Medicine | DX: E83.51 Hypocalcemia (principal); E78.00 Pure hypercholesterolemia, unspecified; E83.39 Other disorders of phosphorus metabolism; I10 Essential (primary) hypertension; N40.0 Benign prostatic hyperplasia without lower urinary tract symptoms | CPT/HCPCS: 99212 ==

== ENCOUNTER 2025-04-10 13:31 | Outpatient (AMB) | payer MEDICARE, MEDICAID, SELFPAY ==
[2025-04-10 14:12] VITALS: BP 150/80; PULSE 59; TEMP 36.7; O2SAT 98; BMI 27.0
--- NOTE | 2025-04-10 14:15 | A.OFFVIS_ITS ---
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 Sealer Operator Required: No Accompanied by: Self / Same As Patient Allergies hydrochlorothiazide Adverse Reaction (Intermediate, Verified 04/10/25 14:25) Stomach Upset Medication List - Last Reconciled 04/10/25 by Toyin David MD amlodipine 10 mg PO DAILY 90 days atorvastatin 20 mg PO DAILY 90 days blood pressure monitor As directed blood pressure test kit-[facility] ([facility] Blood Pressure Monitor kit) As directed cetirizine 10 mg PO DAILY PRN 90 days gabapentin 300 mg PO BID hydralazine 10 mg PO TID 90 days hydrocortisone 1% appl [place] BID PRN lisinopril 40 mg PO DAILY 90 days nabumetone 750 mg PO BID omeprazole 20 mg PO BID 90 days oxycodone ER (OxyContin) 60 mg PO Q12H tamsulosin 0.4 mg PO DAILY HPI HPI Comments History of Present Illness Details The patient is a 74-year-old individual presenting for a Medicare Annual Wellness Exam. The patient reports that the in-office blood pressure reading was slightly elevated, but notes a normal reading of 126/79 mmHg at [facility] handed to patient. Nikolai of care reviewed and updated. Current medications include amlodipine 10 mg, atorvastatin 20 mg, and gabapentin. The patient sees specialists, including a pain doctor and a neurologist, with the last appointment being with the neurologist. The patient reports feeling a little bit sad . The patient is also seeking a Orthopedic Physical Therapist (NET WASHER) as the previous service provided insufficient hours. This is due to his chronic low back pain and limited mobility making it difficult to do some basic and instrumental activities of daily living. [facility] Medical History (Updated 04/10/25 @ 15:29 by Toyin David MD) Paresthesias in right hand Lumbar degenerative disc disease BPH (benign prostatic hyperplasia) Chronic GERD Hypertensive emergency Hypertension Hyperparathyroidism Vitamin D deficiency Hypercalcemia Surgical History History of appendectomy Family History Father Medical history unknown Mother Hypertension Social History Housing: Apartment Alcohol intake: never Patient Tobacco Use Status: Never used Tobacco e-Cigarette/Vaping Use: Never Used Second Hand Smoke Exposure: Yes service: No Current occupational status: disabled Cognitive needs: No Hearing needs: No Vision needs: No Questionnaire Medicare Wellness Checkup [age] What gender do you identify with?: male During the past 4 weeks, how much have you been bothered by emotional problems such as feeling anxious, depressed, irritable, sad or downhearted, and blue?: quite a bit During the past 4 weeks, has your physical & emotional health limited your social activities with family, friends, neighbors, or groups?: quite a bit During the past 4 weeks, how much bodily pain have you generally had?: severe pain During the past 4 weeks, was someone available to help you if you needed & w anted help?: no, not at all During the past 4 weeks, what was the hardest physical activity you could do for at least 2 minutes?: very light Can you get to places out of walking distance without help? (For eg., can you travel alone on buses, taxis or drive your car?): Yes Can you go shopping for groceries or clothes without someone's help?: Yes Can you prepare your own meals?: Yes Can you do your housework without help?: Yes Because of any health problems, do you need the help of another person with your personal care needs such as eating, bathing, dressing or getting around the house?: No Can you handle your own money without help?: Yes During the past 4 weeks, how would you rate your health in general?: poor During the past 4 weeks how have things been going for you?: very bad; could hardly be worse Are you having difficulties driving your car?: no Do you always fasten your seat belt when you are in a car?: yes, usually During past 4 weeks, have you been bothered by the following: never: Falling or dizzy when standing up, Sexual problems? and Problems using the telephone?, sometimes: Teeth or denture problems? and often: Trouble eating well? and Tiredness or fatigue? Have you fallen 2 or more times in the past year?: No Are you afraid of falling?: Yes Are you a smoker?: no During the past 4 weeks, how many drinks of wine, beer, or other alcoholic beverages did you have?: no alcohol at all Do you exercise for about 20 minutes 3 or more times a week?: yes, some of the time Have you been given information to help with the following?: no: Hazards in your house that might hurt you? and no: Keeping track of your medications? How often do you have trouble taking medicines the way you have been told to take them?: I always take medicine as prescribed How confident are you that you can control & manage most of your health problems?: not very confident What is your race?: or origin or descent Mini Mental State Exam (MMSE) Orientation What is the (year) (season) (date) (day) (month)?: year, season, date, day and month Where are we (state) (county) (town or city) (hospital) (floor)?: state, county, town or city, hospital/clinic and floor Registration Name of 3 unrelated objects clearly and slowly, then ask patient to repeat all 3 of them. (1st repeat determines score. Make sure they can repeat all three): object 1, object 2 and object 3 Recall Ask patient to repeat the 3 items from question #3.: object 1, object 2 and object 3 Language Show patient a wristwatch & ask what it is. Repeat for pencil.: watch and pencil Ask the patient to repeat the phrase 'No ifs, ands, or buts' after you.: correct Ask the patient to 'take a piece of paper with their right hand' 'fold paper in half' 'place paper on floor': take paper in right hand, fold paper in half and place paper on floor Print the sentence 'CLOSE YOUR EYES' on a piece. If patient actually closes eyes then score.: followed written direction Score Score: 23 Activity of Daily Living Bathing - sponge bath, tub bath or shower: receives help in bathing only one body part (such as back or leg) Dressing - getting clothes from closets & drawers, including inner/outer garments & fasteners.: gets clothes & gets dressed without help, except for help tying shoes Toileting - going to the 'toilet room' for urine/bowel elimination & cleaning self/arranging clothes: goes to toilet room, cleans self, arranges clothes without help Transfer: moves in & out of bed and chair without help (may use support object) Continence: controls urination/bowel movements completely by self Feeding: feeds self without help Total Score: 0 Information obtained from: patient Using telephone: independent Traveling: independent Shopping: needs assistance Preparing meals: needs assistance Housework: needs assistance Taking medicine: independent Managing money: independent PHQ-9 Over the last 2 weeks, how often have you been bothered by any of the following problems? 1. Little interest or pleasure in doing things: not at all 2. Feeling down, depressed, or hopeless: several days 3. Trouble falling or staying asleep, or sleeping too much: several days 4. Feeling tired or having little energy: not at all 5. Poor appetite or overeating: several days 6. Feeling bad about yourself - or that you are a failure or have let yourself or your family down: not at all 7. Trouble concentrating on things, such as reading the newspaper or watching television: not at all 8. Moving or speaking so slowly that other people could have noticed. Or the opposite - being so fidgety or restless that you have been moving around a lot more than usual: not at all 9. Thoughts that you would be better off or of hurting yourself in some way: not at all Total score: 3 Depression Screening Interpretation: Positive Depression Screening Follow-up: Existing condition, In treatment and Follow-up Visit Requested Depression Screening Done: Yes 19574 - PHQ-9 Billing: Yes Source: Developed by Drs. Abe King, Ashley Dorsey, Stanislav Evans and colleagues, with an educational leigh from [employer]. Review of Systems Const All systems reviewed & are unremarkable except as noted in HPI and below Card Denies chest pain at rest, Denies chest pain with activity, Denies edema, Denies irregular heart rhythm, Denies claudication, Denies dyspnea, Denies dyspnea on exertion, Denies orthopnea, Denies paroxysmal nocturnal dyspnea and Denies slow heart rate Resp Denies cough, Denies dyspnea and Denies dyspnea on exertion Physical Exam Vital Signs: Last Vital Signs Temp 98.1 F 04/10/25 14:12 Pulse 59 04/10/25 14:12 BP 150/80 H 04/10/25 14:12 Pulse Ox 98 04/10/25 14:12 Oxygen Delivery Method Room Air 04/10/25 14:12 BMI result Body Mass Index 27.0 Resp Effort & Inspection: normal respiratory effort Auscultation: clear to auscultation bilaterally Cardio Jugular venous distension: no JVD Rate: regular rate Rhythm: regular rhythm Heart sounds: S1 normal heart sound present and S2 normal heart sound present Extrem General: Yes full ROM Assessment & Plan Assessment & Plan (1) Medicare annual wellness visit, subsequent: Code(s): Z00.00 - Encounter for general adult medical examination without abnormal findings (2) Ear discomfort: Code(s): H92.09 - Otalgia, unspecified ear Plan Plan 1. Medicare Annual Wellness Visit A Medicare Annual Wellness visit was conducted, which included a review of medications and a cognitive assessment. A referral will be placed for a hearing evaluation as requested by the patient. 2. Hypertension The patient's blood pressure was slightly elevated in the office, however, the patient reports a home reading of 126/79 mmHg. Continue amlodipine 10 mg as currently prescribed. 3. Need For Assistance With Daily Living The patient requires a Orthopedic Physical Therapist (NET WASHER). The necessary documentation will be completed upon request from the NET WASHER company. 4. Depressed Mood The patient reports feeling a little bit sad. Will continue to monitor mood. Orders: Orders Comprehensive [place]. Panel Fast Today I10 - Essential (primary) hypertension Phosphorus Today E83.39 - Other disorders of phosphorus metabolism Lipid Panel Today E78.5 - Hyperlipidemia, unspecified Calcium, Ionized Today E83.51 - Hypocalcemia Parathyroid Hormone Intact Today E83.51 - Hypocalcemia Medications: Discontinued atorvastatin Discontinued Reason: Patient Refused 20 mg PO DAILY 90 days 90 tabs 2RF gabapentin Discontinued Reason: Patient Completed Course 300 mg PO BID 60 caps 6RF Quality Reporting (2019) Depression/Bipolar (159/160/161/177) PHQ-9: Total score: 3 Coding Level of Care Code Medicare Subsequent (G0439) Est Pt Level 3 (97185) Diagnoses Medicare annual wellness visit, subsequent Z00.00 Ear discomfort H92.09 Additional Codes PHQ-9 - 09294 - PHQ-9 Billing: Yes ([id number]) Time Spent (min) 36 Advance Care Planning Advance Care Planning discussion: Declined forms
[2025-04-10 14:30] VITALS: BP 126/79
--- OUTSIDE RECORDS SUMMARY | 2025-04-10 18:16 | XMS_ITS | Clinical Summary ---
Author Organization [facility] ity Address [address] [place] [address] Care Team Providers Care Web Site Designer Name Role Phone Unavailable Primary Care Provider [...] 08/16/1999 Zoster Vaccines (1 of 2) 08/16/1999 Depression Screening 05/18/2024 RSV Immunization Adult Patie nts (1 - 1-dose 75+ series) 2024 COVID-19 Vaccine (1 - 2024-2 6 season) 2025 Influenza Vaccine (#1) 2025 HIB Vaccines Aged Out No longer [...]
== END 2025-04-10 14:44 | disposition home or self-care (01) ==
LOC: HO.HMCH 13:31
PROVIDERS: PCP Internal Medicine; Visit Provider Internal Medicine
DX: Z00.00 Encounter for general adult medical examination without abnormal findings (principal)

== ENCOUNTER → 2025-04-10 13:31 | Outpatient (BNVA) | payer MEDICARE, MEDICAID, SELFPAY | PROVIDERS: PCP Internal Medicine; Visit Provider Internal Medicine | DX: Z13.31 Encounter for screening for depression (principal) | CPT/HCPCS: 96127 ==

== ENCOUNTER → 2025-04-27 12:50 | Outpatient (BNVA) | payer MEDICARE, MEDICAID, SELFPAY | PROVIDERS: PCP Internal Medicine | DX: I10 Essential (primary) hypertension (principal) | CPT/HCPCS: 99211 ==